=== PATIENT | male | born 2000 | race Caucasian/White ===

== ENCOUNTER 2024-01-18 12:21 | Emergency (ER) | payer OTHER, SELFPAY ==
[2024-01-18 12:33] VITALS: BP 144/91; PULSE 102; RESP 16; TEMP 36.5; O2SAT 100
--- NOTE | 2024-01-18 12:35 | ED.GENADULT ---
HPI - General Adult General Chief complaint: Unspecified Stated complaint: Need RX Refill Source: patient, RN notes reviewed and old records reviewed Mode of arrival: ambulatory Limitations: no limitations History of Present Illness HPI narrative: 23 [facility] his Vyvanse script reports only need 2-3 days till he can get into contact with his physician. Patient reports that he sees provider at [facility] and he called on Saturday and left message for his provider for refill. He states he never received a call back and he has checked at his pharmacy and no script was sent in. He reports that he called emergency number and was told to go to urgent care for enough medication to last till script can be filled on Saturday. 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 MD complaint: needs refill for a few days of his Vyvanse till can obtain from provider Onset (ago): day(s) (today) Related Data Home Medications Medication Instructions Recorded Confirmed bupropion HCl 75 mg tablet mg PO 01/18/24 lisdexamfetamine 60 mg capsule mg 01/18/24 (Vyvanse) pregabalin 100 mg capsule mg 01/18/24 quetiapine 150 mg tablet mg 01/18/24 Allergies Allergy/AdvReac Type Severity Reaction Status Date / Time No Known Allergies Allergy Unverified 10/17/18 16:54 Review of Systems Review of Systems: CONSTITUTIONAL: Denies fever, chills, or sweats. EYES: Denies visual changes, redness, or discharge. ENT: Denies rhinorrhea, congestion, sore throat, or otalgia. CARDIOVASCULAR: Denies chest pain, palpitations, or edema. RESPIRATORY: Denies cough or dyspnea. GASTROINTESTINAL: Denies abdominal pain, nausea, vomiting, or diarrhea. GENITOURINARY: Denies dysuria or hematuria. SKIN: Denies rash or itching. MUSCULOSKELETAL: Denies back pain, joint pain, or myalgia. NEUROLOGIC: Denies headache, numbness, or weakness. PSYCHIATRIC: Positive history of anxiety or depression. All systems reviewed & are unremarkable except as noted in HPI and below PMFSH Past Medical History Medical History (Updated 01/20/24 @ 10:32 by Urvashi Crook NP) ADHD (attention deficit hyperactivity disorder) Anxiety and depression Bipolar disorder Pilonidal cyst with abscess Social History Social History (Updated 01/20/24 @ 10:45 by Urvashi Crook NP) Smoking status: Current every day smoker Tobacco type: e-cigarettes/vaping Alcohol intake: former Substance use: former Substance use type: opiates Last use: clean 168 days Gender identity (if verbalized by the patient): Male Comments At time of signature, agree with nursing past medical, surgical, social and family history. There is no relevant family history pertinent to the presenting complaint Exam Narrative: GENERAL: Well-appearing, well-nourished, and in no acute distress. HEAD: Normocephalic, atraumatic. EYES: PERRLA and EOMI. ENT: Nares clear, no rhinorrhea or epistaxis. Mucous membranes moist. NECK: Supple. no lymphadenopathy CHEST: Clear to auscultation. No respiratory distress.SAO2 100% on room air HEART: Regular rate and rhythm. No murmur heard. Normal peripheral pulses. ABDOMEN: Soft, nontender, nondistended, normal active bowel sounds. EXTREMITIES: Normal range of motion. No edema. SKIN: Warm, dry, no rash. NEURO: No focal deficits. Alert and oriented x3. Course Course Emergency Course: Patient is aware of diagnosis, understands and agrees to treatment plan.? Anticipatory guidance given.? Patient agrees to follow-up as directed and is aware of reasons to seek care at the emergency department. Portions of this record may have been created with voice recognition software Level of Care: Express Care Visit Vital Signs Vital signs: Vital Signs Temperature 36.5 C 01/18/24 12:33 Pulse Rate 102 H 01/18/24 12:33 Respiratory Rate 16
== END 2024-01-18 13:01 | disposition home or self-care (01) ==
PROVIDERS: Emergency Provider Registered Nurse
DX: Z76.0 Encounter for issue of repeat prescription (principal); F90.9 Attention-deficit hyperactivity disorder, unspecified type; F17.290 Nicotine dependence, other tobacco product, uncomplicated
CPT/HCPCS: 99211; G0463